=== PATIENT | male | born 1995 | race Caucasian/White ===

== ENCOUNTER 2017-10-18 10:55 | Emergency (ER) | payer OTHER ==
[~2017-10-18] VITALS: Ht 185.4 cm; Wt 94.5 kg
[2017-10-18 12:41] VITALS: BP 121/76
== END 2017-10-18 12:42 | disposition home or self-care (01) ==
LOC: EME 10:55
DX: R45.4 Irritability and anger (principal); F22 Delusional disorders
CPT/HCPCS: 90837; 99281; 99285